=== PATIENT | male | born 1995 | race Caucasian/White ===

== ENCOUNTER 2019-03-17 02:52 | Emergency (ER) | payer OTHER ==
[2019-03-17 02:59] VITALS: BP 127/81
--- NOTE | 2019-03-17 03:48 | XRay Report ---
LEFT FOOT 2 VIEWS INDICATION / CLINICAL INFORMATION: Dropped pallet on foot tonight at work. Left lateral foot pain. COMPARISON: None available. FINDINGS: BONES / JOINT(S): No acute fracture or subluxation. No significant arthritis. SOFT TISSUES: No significant abnormality. ADDITIONAL FINDINGS: None. IMPRESSION: No acute osseous abnormality. Signer Name: Jason Steve MD Signed: 03/17/2019 3:43 AM Workstation Name: [id number]
--- NOTE | 2019-03-17 05:00 | Emergency Department Report ---
ED Lower Extremity HPI - General Chief Complaint: Extremity Injury, Lower Stated Complaint: LEFT FOOT INJURY, POSSIBLE BONE OUT, Time Seen by Provider: 03/17/19 04:10 Source: patient Mode of arrival: Ambulatory Limitations: No Limitations - History of Present Illness Initial Comments: 24-year-old [employer] employee was at or [employer] apologetic when he ran into the side of his left foot causing swelling. Pain and painful ambulation. 7 dull throbbing pain since injury which occurred about 4 hours for 5 hours before his visit to the ER tonight. Denies any pre-existing issues with this foot MD Complaint: foot injury Injury: Foot: Left Type of Injury: blunt Place: work Worsens With: movement, palpation Context: direct blow Associated Symptoms: swelling - Related Data Previous Rx's Medication Instructions Recorded Last Taken Type Ketorolac [Toradol] 10 mg PO Q6H PRN #14 tablet 03/17/19 Unknown Rx Allergies Allergy/AdvReac Type Severity Reaction Status Date / Time No Known Allergies Allergy Unverified 03/17/19 02:55 ED Review of Systems ROS: Stated complaint: LEFT FOOT INJURY, POSSIBLE BONE OUT, Other details as noted in HPI Comment: All other systems reviewed and negative ED Past Medical Hx - Past Medical History Previous Medical History?: No - Surgical History Past Surgical History?: No - Social History Smoking Status: Never Smoker - Medications Home Medications: Home Medications Medication Instructions Recorded Confirmed Last Taken Type Ketorolac [Toradol] 10 mg PO Q6H PRN #14 tablet 03/17/19 Unknown Rx ED Physical Exam - General Limitations: No Limitations - Head Head exam: Present: atraumatic, normocephalic - Eye Eye exam: Present: normal appearance - ENT ENT exam: Present: mucous membranes moist - Extremities Exam Extremities exam: Present: tenderness (swelling to the lateral foot pain with palpation. Some bruising is noted. Capillary refill is brisk. Pulses are 2+), normal capillary refill - Neurological Exam Neurological exam: Present: CN II-XII intact, normal gait - Psychiatric Psychiatric exam: Present: normal affect ED Course Vital Signs 03/17/19 02:56 Temperature 98.7 F Pulse Rate 76 Respiratory 18 Rate Blood Pressure 127/81 O2 Sat by Pulse 98 Oximetry ED Lower Extremity MDM - Radiology Data Radiology results: report reviewed (no fracutre noted) Critical care attestation.: If time is entered above; I have spent that time in minutes in the direct care of this critically ill patient, excluding procedure time. ED Disposition Clinical Impression: Foot contusion Disposition: - TO HOME OR SELFCARE Is pt being admited?: No Does the pt Need Aspirin: No Condition: Stable Instructions: Menthol (By mouth), Contusion in Adults (ED), Foot Contusion (ED), RICE Therapy (ED), Ice Pack Application (ED) Prescriptions: Ketorolac [Toradol] 10 mg PO Q6H PRN #14 tablet PRN Reason: Pain Referrals: [facility]ODU[facility] MD TELLO [Primary Care Provider] - 3-5 Days
== END 2019-03-17 05:25 | disposition home or self-care (01) ==
LOC: ED 02:52
DX: S90.32XA Contusion of left foot, initial encounter (principal); X58.XXXA Exposure to other specified factors, initial encounter; Y93.9 Activity, unspecified; Y92.59 Other trade areas as the place of occurrence of the external cause; Y99.8 Other external cause status